=== PATIENT | male | born 1985 | race Two or more races ===

== ENCOUNTER 2022-04-18 12:49 | Outpatient (CLI) | payer OTHER | END 2022-04-18 12:54 | disposition home or self-care (01) | LOC: PPH VACUNA 12:49 | PROVIDERS: ATTEND Emergency Medicine Pediatric Emergency Medicine | DX: Z23 Encounter for immunization (principal) ==

== ENCOUNTER 2022-04-30 08:25 | Outpatient (CLI) | payer OTHER | END 2022-04-30 08:35 | disposition home or self-care (01) | LOC: PPH VACUNA 08:25 | PROVIDERS: ATTEND Emergency Medicine Pediatric Emergency Medicine | DX: Z23 Encounter for immunization (principal) ==

== ENCOUNTER → 2023-04-18 | Outpatient (CLI) | payer OTHER | END | disposition home or self-care (01) | LOC: PPH VACUNA | PROVIDERS: ATTEND Emergency Medicine Pediatric Emergency Medicine | DX: Z23 Encounter for immunization (principal) ==